=== PATIENT | female | born 1935 | race Caucasian/White ===

== ENCOUNTER 2016-04-28 11:34 | Emergency (ER) | payer OTHER ==
[2016-04-28 13:53] LABS: MANUAL DIFF NEEDED? NO
[2016-04-28 13:59] LABS: BASO% 0.4 % (0.0-0.8); EOS# 0.16 X1000 (0.0-0.7); EOS% 1.4 % (0.0-10.0); HEMATOCRIT 38.6 % (37.0-47.0); HEMOGLOBIN 12.3 g/dL (12.0-16.0); IMM GRAN# 0.04 X1000 (0.0-0.04); IMM GRAN% 0.4 % (0.0-0.5); LYMPH# 1.44 X1000 (1.2-3.4); LYMPH% 12.6 % (20.5-51.1); MCH 28.6 PG (27-31); MCHC 31.9 g/dL (33-37); MCV 89.8 FL (81-99); MONO# 0.78 X1000 (0.11-0.59); MONO% 6.8 % (1.7-9.3); MPV 10.3 FL (7.4-10.4); NEUT% 78.4 % (42.2-75.2); PLT 223 X1000 (130-400)
[2016-04-28 14:26] LABS: ALBUMIN 2.9 g/dL (3.5-5.0); CALCIUM 8.4 mg/dL (8.8-10.2); POTASSIUM 4.1 mmol/L (3.5-5.1); TOTAL BILIRUBIN 0.83 mg/dL (0.20-1.00); TOTAL PROTEIN 6.4 g/dL (6.3-8.3)
[2016-04-28] MEDS ORDERED: NS 1,000 ML IV ONE ×2 (16:06→17:46)
--- NOTE | 2016-04-28 16:10 | ED EKG INTERP ---
EKG Interpretation - EKG Time of EKG reading by physician:: 15:47 EKG Read and Signed by:: Addi Luong EKG Interpretation (*Must complete 3 of following elements*): Abnormal Rate: 69 Rhythm: nsr [place]: normal QRS: LBB Attestation - Scribe Verification/Attestation Scribe:: Austin Hubbard Acting as Scribe for:: Addi Luong Scribe documention review:: This chart was documented by a scribe and accurately reflects the service the provider performed and the decisions made by the provider.
--- NOTE | 2016-04-28 16:58 | PROVIDER DOCUMENTATION ---
HPI-General Adult - General Chief Complaint: Abdominal Pain Stated Complaint: BACK,SIDE PAIN Time Seen by Provider: 04/28/16 16:20 Source: patient Allergies/Adverse Reactions: Patient Allergies Allergy/AdvReac Type Severity Reaction Status Date / Time bacitracin Allergy RASH Verified 03/25/16 07:38 [From Neosporin ([id number])] bacitracin zinc * Allergy RASH Verified 03/25/16 07:38 [From Neosporin ([id number])] neomycin sulfate * Allergy RASH Verified 03/25/16 07:38 [From Neosporin ([id number])] polymyxin B Allergy RASH Verified 03/25/16 07:38 [From Neosporin ([id number])] Home Medications: Amiodarone HCl [Pacerone] 200 mg PO QAM 07/02/12 Calcium Carbonate/Vitamin D3 [Oscal 500 + D] 1 each PO QHS 07/02/12 Furosemide 40 mg PO QAM 07/02/12 Levothyroxine [Synthroid] 125 microgm PO QAM 07/02/12 Potassium Chloride [Klor-Con M20] 20 meq PO QAM 06/03/14 Cholecalciferol (Vit D3) [Vitamin D3] 1,000 unit PO DAILY 10/06/15 - History of Present Illness -Gen Adult Nature of Presenting Problems: Pt. is 80 yof that presents with c/o left side flank pain that began last night while laying in bed. Pt. denies any injury and reports the pain is worse when laying flat. Pt. reports a popping feeling in her left flank. Pt. denies any SOB or N/V associated with the pain. Pt. denies any other symptoms at this time. Location of Pain/Injury: reports: other (Left lateral ribs). denies: head, face , mouth, neck, chest, upper extremity, hand(s), abdomen, back, pelvis, genitalia , lower extremity, feet, upper body, lower body, generalized Pain Radiation: reports: no radiation Quality of Pain: reports: sharp. denies: aching, burning, cramping, dull, fullness, indigestion, pressure, stabbing, tearing, throbbing, tightness Severity: reports: mild. denies: moderate, severe Onset/Duration: reports: abrupt, last night Timing: reports: still present, constant. denies: improving, gone now, resolved prior to arrival, intermittent, changing over time, getting worse Context/Activities at Onset: reports: none. denies: recent emotional stress, recent physical stress, recent trauma history, possible bad food, cold exposure , out of country travel Modifying Factors: improves with: immobilization. worse with: lying down, movement Associated Symptoms: reports: pain with inspiration, other (Left lateral rib pain). denies: anxiety, arm pain, back/neck pain, chest pain, constipation, cough, diaphoresis, diarrhea, dizziness, EENT symptoms, fatigue, fever/chills, genitourinary problems, headaches, heartburn, joint pain, loss of appetite, malaise, muscle aches, sinus congestion/drainage, nausea, rash, seizure, shortness of breath, sensory/motor loss, swelling/mass in abdomen, syncope, vomiting, weakness, trouble walking Similar Symptoms Previously?: Yes Recently seen or treated by another doctor?: No Review of Systems - Adult - REVIEW OF SYSTEMS - ADULT Constitutional: reports: see HPI. denies: chills, fever, fatique Eyes: reports: see HPI. denies: discharge, blurred vision, double vision, eye pain Ears, Nose, Mouth & Throat: reports: see HPI. denies: ear pain, hearing loss, nose pain, loose teeth, mouth swelling, throat swelling Cardiovascular: reports: see HPI. denies: chest pain, palpitations, syncope Respiratory: reports: see HPI, pleurisy. denies: cough, dyspnea on exertion, shortness of breath, wheezing Gastrointestinal: reports: see HPI. denies: abdominal pain, hematemesis, diarrhea, nausea, vomiting Genitourinary: reports: see HPI. denies: dysuria, discharge, hematuria, hesitency, urgency Musculoskeletal: reports: see HPI. denies: bone pain, back pain, joint pain, joint swelling, neck pain Integumentary: reports: see HPI. denies: hair loss, itching, rash, skin thickening Neurological: reports: see HPI, ataxia. denies: dizziness/vertigo, headache/ migraines, numbness, seizure, tremors Psychiatric: reports: see HPI. denies: anxiety, depression, emotional problems , insomnia, panic attacks, suicidal thoughts Past History - Adult - PAST MEDICAL HISTORY-ADULT Review of Records: reports: Old Records Reviewed, Nursing Assessment Review, Medications Reviewed, Social history reviewed & non-contributory. Cardiovascular: reports: A-Fib, HTN, hyperlipidemia Gastrointestinal: reports: colitis Endocrine/Immune: reports: thyroid disorder - PRIOR SURGERIES/PROCEDURES Surgical/Procedure History: reports: cholecystectomy, hysterectomy, - IMMUNIZATION STATUS Childhood Immunizations: See Nurse Assessment Flu Vaccine: See Nurse Assessment - FAMILY HISTORY Family History: diabetes Physical Exam-General - PHYSICAL EXAM-ADULT Initial Vital Signs Reviewed: Yes - CONSTITUTIONAL General Appearance: alert, mild distress, obese. negative: thin, anxious, lethargic, slow to respond, obtunded, combative - EYES Eyes: PERRL/EOMI, pink conjunctivae. negative: conjuctival exudate, pale conjunctivae, scleral icterus, subconjunctival hemorrhage - HEAD, EARS, NOSE, MOUTH & THROAT HENMT: normocephalic/atraumatic, moist mucous membranes. negative: angioedema, frontal tenderness, maxillary tenderness - NECK Neck: non-tender, full range of motion, supple, normal inspection. negative: lymphadenopathy, trachial deviation, thyromegaly - RESPIRATORY Respiratory: lungs clear, normal breath sounds. negative: crackles, rales, rhonchi, stridor, wheezing - CARDIOVASCULAR Cardiovascular: normal peripheral pulses, regular rate, rhythm, no edema, no JVD , no murmur, irregularly irregular. negative: tachycardia, extra beats, friction rub - CHEST (BREASTS) Chest/Breast: deferred - GASTROINTESTINAL (ABDOMEN) Abdominal Exam: normal bowel sounds, non tender, soft. negative: distended, guarding, rigid, rebound, tenderness, hernia, mass - GENITOURINARY Female Genitalia/Pelvic Exam: deferred Rectal Exam: deferred Hemoccult Exam: deferred - LYMPHATIC Lymphatic: no adenopathy. negative: axilla node tender, cervical node tenderness - MUSCULOSKELETAL Back Exam: normal inspection, no CVA tenderness, no vertebral tenderness. negative: ecchymosis, muscle spasm, vertebral tenderness Extremity: normal range of motion, non-tender, normal inspection. negative: deformity, erythema, inflammation, swelling, tenderness Peripheral Pulses: radial (R): 2+, radial (L): 2+ - SKIN Integumentary: normal color, normal turgor, warm/dry. negative: cyanosis, diaphoresis, ecchymosis, erythema, jaundice, mottled, pallor, petechiae, purpura , rash, swelling, tenderness - NEUROLOGIC Neurologic: grossly normal, no motor/sensory deficits. negative: aphasia, facial droop, focal weakness, motor weakness, sensory deficit - PSYCHIATRIC Psych/Mental Status: normal mood/affect, normal thought content, normal thought process, oriented x 3. negative: anxious, paranoid, tearful Progress - PLAN OF CARE/RESULTS Progress/Plan/Lab Results: Discussed results and plan of care with patient. Patient agrees with plan and verbalizes understanding. Vital Signs Temp Pulse Resp BP Pulse Ox 04/28/16 15:49 98.2 F 69 16 99/68 98 04/28/16 12:54 97.5 F L 63 20 97/66 99 bacitracin [From Neosporin ([id number])] Allergy (Verified 03/25/16 07:38) RASH bacitracin zinc * [From Neosporin ([id number]-cet-[id number])] Allergy (Verified 03/25/16 07 :38) RASH neomycin sulfate * [From Neosporin ([id number]-[id number])] Allergy (Verified 03/25/16 07:38) RASH polymyxin B [From Neosporin ([id number]-[id number])] Allergy (Verified 03/25/16 07:38) RASH Amiodarone HCl [Pacerone] 200 mg PO QAM 07/02/12 Calcium Carbonate/Vitamin D3 [Oscal 500 + D] 1 each PO QHS 07/02/12 Furosemide 40 mg PO QAM 07/02/12 Levothyroxine [Synthroid] 125 microgm PO QAM 07/02/12 Potassium Chloride [Klor-Con M20] 20 meq PO QAM 06/03/14 Cholecalciferol (Vit D3) [Vitamin D3] 1,000 unit PO DAILY 10/06/15 Apixaban [Eliquis] 5 mg PO BID #60 tablet 11/27/15 Hydrocodone/Acetaminophen [[place] 5-325 Tablet] 1 each PO Q6HR PRN #20 tablet 06/04 Baclofen 10 mg PO TID #20 tablet 03/23/16 Fluconazole [Diflucan] 150 mg PO DAILY #7 tablet 03/23/16 Hydrocodone/APAP 5 mg/325 mg [[place]-5] 1 each PO Q8H PRN PRN #10 tablet Levofloxacin [Levaquin] 500 mg PO DAILY #10 tablet 03/25/16 Promethazine [Phenergan] 25 mg PO Q6H PRN PRN #10 tablet 03/25/16 Dietary Diet NPO Start WedApr 28 1306 Laboratory 04/28/16 04/28/16 04/28/16 Unknown 13:19 13:19 WBC 11.39 H RBC 4.30 Hgb 12.3 Hct 38.6 MCV 89.8 MCH 28.6 MCHC 31.9 L RDW Std Deviation 15.2 H Plt Count 223 MPV 10.3 Immature Gran % (Auto) 0.4 Neut % (Auto) 78.4 H Lymph % (Auto) 12.6 L [place] % (Auto) 6.8 Eos % (Auto) 1.4 Baso % (Auto) 0.4 Immature Gran # (Auto) 0.04 Neut # (Auto) 8.92 H Lymph # (Auto) 1.44 [place] # (Auto) 0.78 H Eos # (Auto) 0.16 Baso # (Auto) 0.05 Sodium Potassium Chloride Carbon Dioxide Anion Gap BUN Creatinine Estimated GFR/1.73 m2 BUN/Creatinine Ratio Glucose Calculated Osmolality Calcium Total Bilirubin AST ALT Alkaline Phosphatase Troponin T < 0.010 Total Protein Albumin Globulin Albumin/Globulin Ratio Amylase Lipase Urine Source CATH Urine Color YELLOW Urine Turbidity CLEAR Urine pH 6.5 Ur Specific [place] 1.015 Urine Protein NEGATIVE Ur Glucose (Stick) NEGATIVE Ur Ketones (Stick) NEGATIVE Urine Blood NEGATIVE Urine Nitrite POSITIVE A Urine Bilirubin NEGATIVE Urobilinogen Dipstick 2 A Urine Leukocytes MODERATE A Urine WBC (Auto) 10-20 A Urine RBC (Auto) <10 U Epithel Cells (Auto) <10 Urine Bacteria (Auto) 3+ 04/28/16 13:19 WBC RBC Hgb Hct MCV MCH MCHC RDW Std Deviation Plt Count MPV Immature Gran % (Auto) Neut % (Auto) Lymph % (Auto) [place] % (Auto) Eos % (Auto) Baso % (Auto) Immature Gran # (Auto) Neut # (Auto) Lymph # (Auto) [place] # (Auto) Eos # (Auto) Baso # (Auto) Sodium 127 L Potassium 4.1 Chloride 90 L Carbon Dioxide 28 Anion Gap 9 BUN 14 Creatinine 1.2 H Estimated GFR/1.73 m2 43 BUN/Creatinine Ratio 12 Glucose 116 H Calculated Osmolality 257 Calcium 8.4 L Total Bilirubin 0.83 AST 43 H ALT 17 Alkaline Phosphatase 107 H Troponin T Total Protein 6.4 Albumin 2.9 L Globulin 3.5 Albumin/Globulin Ratio 0.8 Amylase 54 Lipase 58 Urine Source Urine Color Urine Turbidity Urine pH Ur Specific [place] Urine Protein Ur Glucose (Stick) Ur Ketones (Stick) Urine Blood Urine Nitrite Urine Bilirubin Urobilinogen Dipstick Urine Leukocytes Urine WBC (Auto) Urine RBC (Auto) U Epithel Cells (Auto) Urine Bacteria (Auto) Orders Category Date Time Status Saline Loc DIRECTED Care 04/28/16 13:06 Active NPO Diet 04/28/16 13:06 Active FLAT/UPRIGHT ABD/1 VIEW CHEST [RAD] Stat Exams 04/28/16 16:03 Draft AMYLASE [CHEM] Stat Lab 04/28/16 13:19 Completed CBC WITH ELECTRONIC DIFF [HEME] Stat Lab 04/28/16 13:19 Completed COMPREHENSIVE METABOLIC PANEL [CHEM] Stat Lab 04/28/16 13:19 Completed LIPASE [CHEM] Stat Lab 04/28/16 13:19 Completed TROPONIN T Stat Lab 04/28/16 13:19 Completed URINALYSIS W/POSS RFLX CULT [URINALYSIS] Stat Lab 04/28/16 Completed URINE CULTURE [RM] Routine Lab 04/28/16 18:20 Received 0.9% Sodium Chloride Inj [Ns] 1,000 ml Med 04/28/16 16:06 Discontinued IV 999 mls/hr 0.9% Sodium Chloride Inj [Ns] 1,000 ml Med 04/28/16 17:46 Active IV 999 mls/hr CefTRIAXONE 1 GM/NS [Rocephin 1 gm/Ns] 50 ml Med 04/28/16 18:41 Active IV NOW EKG [EKG] Stat Ther 04/28/16 16:02 Ordered Laboratory Tests 04/28/16 04/28/16 04/28/16 13:19 13:19 13:19 WBC 11.39 H RBC 4.30 Hgb 12.3 Hct 38.6 MCV 89.8 MCH 28.6 MCHC 31.9 L RDW Std Deviation 15.2 H Plt Count 223 MPV 10.3 Immature Gran % (Auto) 0.4 Neut % (Auto) 78.4 H Lymph % (Auto) 12.6 L [place] % (Auto) 6.8 Eos % (Auto) 1.4 Baso % (Auto) 0.4 Immature Gran # (Auto) 0.04 Neut # (Auto) 8.92 H Lymph # (Auto) 1.44 [place] # (Auto) 0.78 H Eos # (Auto) 0.16 Baso # (Auto) 0.05 Sodium 127 L Potassium 4.1 Chloride 90 L Carbon Dioxide 28 Anion Gap 9 BUN 14 Creatinine 1.2 H Estimated GFR/1.73 m2 43 BUN/Creatinine Ratio 12 Glucose 116 H Calculated Osmolality 257 Calcium 8.4 L Total Bilirubin 0.83 AST 43 H ALT 17 Alkaline Phosphatase 107 H Troponin T < 0.010 Total Protein 6.4 Albumin 2.9 L Globulin 3.5 Albumin/Globulin Ratio 0.8 Amylase 54 Lipase 58 Urine Source Urine Color Urine Turbidity Urine pH Ur Specific [place] Urine Protein Ur Glucose (Stick) Ur Ketones (Stick) Urine Blood Urine Nitrite Urine Bilirubin Urobilinogen Dipstick Urine Leukocytes Urine WBC (Auto) Urine RBC (Auto) U Epithel Cells (Auto) Urine Bacteria (Auto) 04/28/16 Unknown WBC RBC Hgb Hct MCV MCH MCHC RDW Std Deviation Plt Count MPV Immature Gran % (Auto) Neut % (Auto) Lymph % (Auto) [place] % (Auto) Eos % (Auto) Baso % (Auto) Immature Gran # (Auto) Neut # (Auto) Lymph # (Auto) [place] # (Auto) Eos # (Auto) Baso # (Auto) Sodium Potassium Chloride Carbon Dioxide Anion Gap BUN Creatinine Estimated GFR/1.73 m2 BUN/Creatinine Ratio Glucose Calculated Osmolality Calcium Total Bilirubin AST ALT Alkaline Phosphatase Troponin T Total Protein Albumin Globulin Albumin/Globulin Ratio Amylase Lipase Urine Source CATH Urine Color YELLOW Urine Turbidity CLEAR Urine pH 6.5 Ur Specific [place] 1.015 Urine Protein NEGATIVE Ur Glucose (Stick) NEGATIVE Ur Ketones (Stick) NEGATIVE Urine Blood NEGATIVE Urine Nitrite POSITIVE A Urine Bilirubin NEGATIVE Urobilinogen Dipstick 2 A Urine Leukocytes MODERATE A Urine WBC (Auto) 10-20 A Urine RBC (Auto) <10 U Epithel Cells (Auto) <10 Urine Bacteria (Auto) 3+ - XRAY 1 XRAY Study: 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[place])), Abdomen (Constipation ( [place])) XRAY Interpretation: see note Departure - Departure Time of Disposition Order: 18:43 DIAGNOSIS: Costochondritis, acute, Hyponatremia UTI (urinary tract infection) Qualifiers: Urinary tract infection type: acute cystitis Hematuria presence: without hematuria Qualified Code(s): N30.00 - Acute cystitis without hematuria Constipation Qualifiers: Constipation type: unspecified constipation type Qualified Code(s): K59.00 - Constipation, unspecified Disposition: HOME 01 Certified Medical Emergency: Emergent Condition: Stable Additional Instructions: Follow up with primary care physician Add salt to your diet Take medications as directed Return to ED for any concerns or worsening of symptoms ED Follow Up Instructions: You have been treated by a care provider in the Emergency Department. These instructions are being provided to you so you can have an understanding of how to care for yourself upon discharge. Upon discharge from the Emergency Department, you are responsible for making arrangements for follow-up care by a physician of your choice. Take all prescribed medications as directed. Return to the Emergency Department immediately for any new or worsening symptoms. You may call the Physician Referral phone number at [phone] to obtain a list of Physicians who are taking new patients. Prescriptions: Sulfamethoxazole/Trimethoprim [Bactrim Ds Tablet] 1 each PO BID #10 tablet Ibuprofen [Motrin] 800 mg PO Q8H PRN PRN #20 tablet PRN Reason: inflammation Omeprazole 20 mg PO DAILY #20 tablet.dr Referrals: Modesto Fermin MD [Primary Care Provider] - Instructions: Costochondritis, Elpm-dy-Oniv, Hyponatremia, [id number]-[id number], Urinary Tract Infection, [id number] Attestation - Physician/ Mid-level Attestation Patient care was provided by Mid-level provider (PROGRAMMING INTERN/PA):: Yes Mid-level provider:: [place] Mid-level documentation review:: The Mid-level provider documentation, treatment plan and medical decision making was reviewed by the physician who agrees with all treatment and medical decision making by the MLP.
[2016-04-28 17:50] LABS: BILIRUBIN URINE NEGATIVE (NEGATIVE); BLOOD URINE NEGATIVE (NEGATIVE); COLOR YELLOW; GLUCOSE URINE NEGATIVE (NEGATIVE); LEUKOCYTES URINE MODERATE (NEGATIVE); NITRITE URINE POSITIVE (NEGATIVE); PH URINE 6.5; PROTEIN URINE NEGATIVE (NEGATIVE); SP GRAVITY URINE 1.015; TURBIDITY URINE CLEAR (CLEAR); URINE MICRO REVIEW NEEDED? NO; URINE SOURCE CATH; UROBILINOGEN URINE 2 mg/dL (NORMAL)
--- NOTE | 2016-04-28 17:50 | Diag Imaging Result Document ---
PROCEDURE NAME: FLAT/UPRIGHT ABD/1 VIEW CHEST - 04/28/2016 FLAT AND UPRIGHT ABDOMEN: FINDINGS: There is gas and stool throughout the colon. There is no evidence of gastric or small- bowel dilatation. No evidence of organomegaly or mass is present. IMPRESSION: Constipation. AP CHEST: FINDINGS: There is scoliosis of the thoracic spine with convexity to the right. There is fibrosis in the right middle lobe and/or lower lobe. This was similar in appearance on 03/25/2016. IMPRESSION: Right basilar fibrosis. Essentially stable chest.
[2016-04-28 17:52] LABS: UR EPITHELIAL CELLS <10 /HPF (<10); URINE BACTERIA 3+ /HPF; URINE CULTURE NEEDED? YES; URINE RBC <10 /HPF (<10)
[2016-04-28] MEDS ORDERED: ROCEPHIN 1 GM/NS 50 ML IV ONE (18:41)
[2016-04-28 19:52] VITALS: BP 90/74
--- NOTE | 2016-04-29 06:24 | EKG Report ---
Test Performed on : 04/28/2016 3:47:19 PM Test Reason : CP Blood Pressure : / mmHG Vent. Rate : 069 BPM Atrial Rate : 069 BPM P-R Int : 170 ms QRS Dur : 154 ms QT Int : 510 ms P-R-T Axes : 070 006 173 degrees QTc Int : 546 ms Normal sinus rhythm. Left bundle branch block Abnormal ECG When compared with ECG of 25-MAR-2016 09:11, Sinus rhythm. has replaced Wide QRS rhythm. Unconfirmed Result
== END 2016-04-28 19:52 | disposition home or self-care (01) ==
LOC: ED 11:34
DX: M94.0 Chondrocostal junction syndrome [Tietze] (principal); E87.1 Hypo-osmolality and hyponatremia; N30.00 Acute cystitis without hematuria; K59.00 Constipation, unspecified; M79.673 Pain in unspecified foot; R07.81 Pleurodynia; I48.91 Unspecified atrial fibrillation; I10 Essential (primary) hypertension; Z79.899 Other long term (current) drug therapy; E78.5 Hyperlipidemia, unspecified; E07.9 Disorder of thyroid, unspecified; E66.9 Obesity, unspecified; Z68.24 Body mass index [BMI] 24.0-24.9, adult; Z79.01 Long term (current) use of anticoagulants
CPT/HCPCS: 36415; 74022; 80053; 81001; 82150; 83690; 84484; 85025; 87077; 87088; 87186; 93005; 96365; J0696; J7030

== ENCOUNTER 2016-08-06 00:12 | Inpatient (IN) ==
[2016-08-06] MEDS ORDERED: ASPIRIN PO STA (01:12)
[2016-08-06] MEDS ORDERED: NS 500 ML IV ONE (01:15)
[2016-08-06 02:26] LABS: BASO% 0.2 % (0.0-0.8); EOS# 0.07 X1000 (0.0-0.7); EOS% 0.6 % (0.0-10.0); HEMATOCRIT 31.2 % (37.0-47.0); HEMOGLOBIN 10.6 g/dL (12.0-16.0); IMM GRAN# 0.03 X1000 (0.0-0.04); IMM GRAN% 0.3 % (0.0-0.5); LYMPH# 0.73 X1000 (1.2-3.4); LYMPH% 6.6 % (20.5-51.1); MCV 91.2 FL (81-99); MONO% 6.3 % (1.7-9.3); MPV 11.4 FL (7.4-10.4); PLT 130 X1000 (130-400); RBC 3.42 XMIL (4.2-5.4)
[2016-08-06 02:34] LABS: ALBUMIN 2.1 g/dL (3.5-5.0); CALCIUM 7.3 mg/dL (8.8-10.2); MAGNESIUM 2.2 mg/dL (1.5-2.7); POTASSIUM 4.8 mmol/L (3.5-5.1); TOTAL BILIRUBIN 1.76 mg/dL (0.20-1.00); TOTAL PROTEIN 4.6 g/dL (6.3-8.3)
[2016-08-06] MEDS ORDERED: SODIUM CHLORIDE IV ONE (03:01)
[2016-08-06] MEDS ORDERED: ZOSYN 3.375 GM/NS 3.375 GM/50 ML IVPB IV ONE (03:01)
[2016-08-06] MEDS ORDERED: NS 1,000 ML IV ONE (03:01)
--- NOTE | 2016-08-06 03:09 | PROVIDER DOCUMENTATION ---
This chart was entered by Gudelia Marie Scribe, acting as scribe for Charlie Escamilla MD. HPI-General Adult - General Chief Complaint: General Adult Stated Complaint: ABD PAIN Time Seen by Provider: 08/06/16 00:30 Source: EMS Allergies/Adverse Reactions: Patient Allergies Allergy/AdvReac Type Severity Reaction Status Date / Time bacitracin Allergy RASH Verified 08/06/16 00:54 [From Neosporin ([id number])] bacitracin zinc * Allergy RASH Verified 08/06/16 00:54 [From Neosporin ([id number])] neomycin sulfate * Allergy RASH Verified 08/06/16 00:54 [From Neosporin ([id number])] polymyxin B Allergy RASH Verified 08/06/16 00:54 [From Neosporin ([id number])] Home Medications: Home Medication List Medication Instructions Recorded Confirmed Last Taken Type Amiodarone HCl [Pacerone] 200 mg PO QAM 07/02/12 08/06/16 08/05/16 History Levothyroxine [Synthroid] 125 microgm PO QAM 07/02/12 08/06/16 08/05/16 History Carvedilol 25 mg PO BID 05/04/16 08/06/16 08/05/16 History Hydrocodone/Acetaminophen [[place] 1 - 2 each PO Q6H PRN PRN #40 05/06/1608/05/16 Rx 5-325 Tablet] tablet Ondansetron HCl [Zofran] 1 tab PO DAILY 08/06/16 08/06/16 08/05/16 History - History of Present Illness -Gen Adult Nature of Presenting Problems: PT IS A 81YOF PRESENTING TO THE ED PER EMS. EMS STATES THEY ARE VERY FAMILIAR WITH PT AND AREN'T SURE OF NATURE OF ILLNESS AT THIS TIME. EMS DID NOTE PT WAS WARM TO THE TOUCH AND MORE LETHARGIC THAN NORMAL BUT THEY ALSO STATED THAT HER LIVING CONDITIONS WERE "ABSOLUTELY DISGUSTING AND NOT SUITABLE FOR ANYONE TO LIVE IN" PT PHYSICAL APPEARANCE IS VERY POOR AND NO ABILITY TO CARE FOR HERSELF AND HYGIENE. PT STATES NO PAIN BUT STILL UNSURE OF REASON TO BE IN ED. Location of Pain/Injury: reports: none Pain Radiation: reports: no radiation Quality of Pain: reports: none Severity: reports: severe Onset/Duration: reports: just prior to arrival Timing: reports: still present Context/Activities at Onset: reports: light activity Modifying Factors: improves with: nothing Associated Symptoms: reports: denies symptoms Similar Symptoms Previously?: No Recently seen or treated by another doctor?: No Review of Systems - Adult - REVIEW OF SYSTEMS - ADULT Constitutional: reports: no symptoms reported Eyes: reports: no symptoms reported Ears, Nose, Mouth & Throat: reports: no symptoms reported Cardiovascular: reports: no symptoms reported Respiratory: reports: no symptoms reported Gastrointestinal: reports: no symptoms reported Genitourinary: reports: no symptoms reported Musculoskeletal: reports: no symptoms reported Integumentary: reports: no symptoms reported Neurological: reports: no symptoms reported Psychiatric: reports: no symptoms reported Endocrine: reports: no symptoms reported Hematologic/Lymphatic: reports: no symptoms reported Allergic/Immunologic: reports: no symptoms reported All Other Systems: Reviewed and Negative Past History - Adult - PAST MEDICAL HISTORY-ADULT Review of Records: reports: Old Records Reviewed, Nursing Assessment Review, Medications Reviewed, Social history reviewed & non-contributory. Major Childhood Illnesses: reports: denies history Cardiovascular: reports: A-Fib, HTN, hyperlipidemia Respiratory: reports: denies history Gastrointestinal: reports: colitis Obstetrical/Gynecological: reports: denies history Genitourinary: reports: denies history Musculoskeletal: reports: denies history Neurological: reports: denies history Endocrine/Immune: reports: thyroid disorder Other Conditions: reports: denies history - PRIOR SURGERIES/PROCEDURES Surgical/Procedure History: reports: cholecystectomy, hysterectomy, - IMMUNIZATION STATUS Childhood Immunizations: See Nurse Assessment Flu Vaccine: See Nurse Assessment - FAMILY HISTORY Family History: diabetes - SOCIAL HISTORY Smoking: denies, non-smoker Substance Use: none/never, denies Alcohol Use Frequency: never Living Situation: family Physical Exam-General - PHYSICAL EXAM-ADULT Initial Vital Signs Reviewed: Yes - CONSTITUTIONAL General Appearance: mild distress, cachetic, thin, other (POOR HYGIENE AND LACK OF PROPER CARE FOR HYGIENE PHYSICAL WELL BEING) - EYES Eyes: PERRL/EOMI, pink conjunctivae, fundi clear, no AV nicking - HEAD, EARS, NOSE, MOUTH & THROAT HENMT: normocephalic/atraumatic, moist mucous membranes, normal ENT inspection, TMs normal, pharynx normal - NECK Neck: non-tender, full range of motion, supple, normal inspection - RESPIRATORY Respiratory: chest non-tender, lungs clear, normal breath sounds, no pleuratic chest pain, no respiratory distress, no accessory muscle use - CARDIOVASCULAR Cardiovascular: normal peripheral pulses, regular rate, rhythm, no edema, no gallop, no JVD, no murmur - GASTROINTESTINAL (ABDOMEN) Abdominal Exam: normal bowel sounds, non tender, soft, no organomegaly, no pulsatile mass - LYMPHATIC Lymphatic: no adenopathy - MUSCULOSKELETAL Back Exam: normal inspection, no CVA tenderness, no vertebral tenderness Extremity: no pedal edema, no calf tenderness, normal capillary refill, pelvis stable, other (HX RIGHT ARM FX NOT REPAIRED [id number] PRIOR, PT HAS HEMATOMA FROM WRIST TO SHOULDER). negative: normal range of motion, non-tender, normal gait, normal inspection - SKIN Integumentary: warm/dry, ecchymosis, pallor, warm - NEUROLOGIC Neurologic: abnormal cerebellar tests, abnormal hosiery mater II-XII, abnormal gait, motor weakness - PSYCHIATRIC Psych/Mental Status: oriented x 3, disheveled, depressed affect. negative: normal mood/affect, normal thought content, normal thought process Progress - PLAN OF CARE/RESULTS Progress/Plan/Lab Results: Vital Signs - 8 hr 08/06/16 00:30 Temperature 98.2 F Pulse Rate 89 Respiratory Rate 18 Blood Pressure 80/42 O2 Sat by Pulse Oximetry 96 0120 MS. DENNYS' CASE WAS DISCUSSED BETWEEN MYSELF, DR. ESCAMILLA, AND MARTIR OLIVEIRA REGARDING PTS POOR STATE OF HYGIENE, THE APPEARANCE OF LACK OF PROPER CARE AT HOME AND THE REPORT GIVEN PER EMS REGARDING HER LIVING CONDITIONS. THE DECISION WAS MADE WE NEEDED TO CONTACT [facility] FOR POSSIBLE ELDER NEGLECT. EMS STATED THAT THE HOME WAS NOT SUITABLE TO LIVE IN AND THAT THE POOR CONDITION OF HOME WAS OBVIOUS FOR NEGLECT OF PROPER CLEANING AND UP KEEP OF A DWELLING THAT SOMEONE SHOULD LIVE IN. 0125 PATRICIA TORRES WITH [facility] WAS CONTACTED AND NOTIFIED OF PTS CONDITION AND SHE STATED SHE WOULD CONTACT HER AGRICULTURAL ADVISER AND CALL BACK. 0148 PATRICIA STATED THAT HER AGRICULTURAL ADVISER STATED THAT IF PT WAS BEING ADMITTED THEN THEY WOULD SEND SOMEONE AFTER 0800. I ASKED HER TO PLEASE CALL AGRICULTURAL ADVISER BACK AND STRESS IMPORTANCE OF EVALUATION THIS AM. 0152 PATRICIA TORRES CALLED BACK AND STATED SINCE PT WAS ADMITTED THEY WOULD SEND A WORKER IN THE AM. I CLARIFIED WITH PATRICIA THAT AT THIS TIME WE DID NOT HAVE A DISPOSITION TO ADMISSION OR NOT AND EVEN IF SHE IS ADMITTED SHE WILL BE IN ED FOR AN EXTENDED AMOUNT OF TIME DUE TO NO ADMISSION BEDS AVAILABLE UPSTAIRS. I REQUESTED PATRICIA TO CALL HER AGRICULTURAL ADVISER RUSSEL LOZADA AND STRESS THE IMPORTANCE OF THE SITUATION. THAT PTS HAIR IS MATTED TO HER HEAD, IT APPEARS THAT SHE HAS FECES UNDER HER NAILS, HER LEFT ARM HAD BEEN FX APPROXIMATELY 6 MONTHS PRIOR AND NO TREATMENT PROCEDURES DONE ON THE ARM, THAT HER LEFT ARM FROM WRIST TO THE SHOULDER IS ONE LARGE HEMATOMA, PTS CLOTHING AND PHYSICAL HYGIENE APPEARS THAT SHE HAS NOT BEEN BATHED OR CLEANED PROPERLY IN MANY DAYS. I ALSO EXPLAINED TO HER THAT THE SON IS AT BEDSIDE ATTEMPTING TO CLEAN UNDER HER NAILS WITH OUR SANI-WIPES AND THAT HIS PERSONAL HYGIENE IS LACKING WELL. 210 PATRICIA CALLED BACK AND STATED SHE WAS ENROUTE TO EVALUATE PT PER AGRICULTURAL ADVISER RUSSEL LOZADA. 251 PATRICIA WITH [facility] ARRIVED TO EVALUATE PT CONDITION AND SPEAK WITH DR. ESCAMILLA Result Diagrams: 08/06/16 00:20 08/06/16 00:20 - XRAY 1 XRAY: Bilateral XRAY Study: Chest (RIGHT UPPER/LOWER PNEUMONIA, BILATERAL PLEURAL EFFUSIONS, CARDIOMEGALLY) Departure - Departure Time of Disposition Decision: 03:09 DIAGNOSIS: Sepsis associated hypotension, Malnutrition Disposition: ADMITTED INPATIENT 09 Certified Medical Emergency: Emergent Condition: Stable Referrals and Follow-Ups: Modesto Fermin MD [Primary Care Provider] - Attestation - Physician/ MODESTA Attestation Patient care was provided by Advanced Practice Provider:: Yes Advanced Practice Provider documentation review:: The Mid-level provider documentation, treatment plan and medical decision making was reviewed by the physician who agrees with all treatment and medical decision making by the MLP. The physician spent face to face time with patient:: Yes Advanced Practice Provider documentation review:: The physician spent face to face time with this patient and agrees with all MLP documentation, treatment, and medical decision making by the MLP. See provider notes for further information. This chart was documented by the indicated scribe, (Gudelia Marie Scribe) and accurately reflects the services I performed and decisions made by me, Charlie Escamilla MD, as attested by the provider's signature.
[2016-08-06] MEDS ORDERED: VANCOMYCIN IV PER PHARMACY MISC SCH ×2 (03:15→07:24)
[2016-08-06 03:37] LABS: MANUAL DIFF NEEDED? NO
[2016-08-06] MEDS: DOPAMINE 400 MG/D5W 400 MG/500 ML IV.SOLN IV SCH ×2 (03:54→06:17)
[2016-08-06 04:25] LABS: INR 2.29; PROTIME 25.4 Seconds (9.2-11.7); PTT 43.6 Seconds (22.0-36.0)
--- NOTE | 2016-08-06 04:46 | HISTORY AND PHYSICAL ---
PRIMARY CARE PHYSICIAN: Dr. Modesto Hodge. CHIEF COMPLAINT: Not feeling well. HISTORY OF PRESENT ILLNESS: This is an 81-year-old female who was brought to the emergency department because apparently she was not feeling well and she was more lethargic. Patient is a poor historian and son is at bedside. He reports that she was feeling not well today. He reports that she had one episode of blood in stool today. Also, that he noticed that this patient was having more cough. He has not seen any fever in this patient the previous day. As per EMS note, the conditions where the patient was found was absolutely disgusting and nonsterile for anybody to live in. Here in the ER, she was evaluated and she was found to have a bilateral pneumonia with septic shock associated with low blood pressure, tachycardic, but not febrile. At this point, we are going to admit this patient to the intensive care unit and will monitor her closely. PAST MEDICAL HISTORY: 1. Atrial fibrillation, on Eliquis. 2. Hypertension. 3. Hypothyroidism. 4. Hyperlipidemia. 5. GERD. 6. Old traumatic injury to the upper lip. 7. 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 Diverticulosis. PAST SURGICAL HISTORY: Cholecystectomy and section. SOCIAL HISTORY: She was a former smoker but quit 20 years ago. She denies using any illicit drugs or drinking alcohol. Lives at home with son. FAMILY HISTORY: Noncontributory. REVIEW OF SYMPTOMS: Not possible to obtain because the patient is not a good historian. ALLERGIES: Patient is allergic to Neosporin, neomycin, polymyxin, bacitracin, and also zinc. PHYSICAL EXAMINATION: VITAL SIGNS: Temperature 98.2 degrees, heart rate 89, respiratory rate 18, blood pressure 70/40, O2 saturation 96% on 5 L nasal cannula. GENERAL: This is an unkempt chronically ill-looking, frail, 81-year-old female lying in bed, in no acute distress. A little bit lethargic, although she answers questions appropriately. HEENT: Head is normocephalic, with old traumatic injury to the upper lip with gums which are purple in color and dry. Pupils equal, round, and reactive to light and accommodation and pale conjunctivae. NECK: Supple. No JVD noted. No carotid bruits. No lymphadenopathy. No thyromegaly. CARDIOVASCULAR: S1, S2 heard. No murmurs, gallops, or rubs. Regular rate and rhythm. RESPIRATORY: Clear bilaterally to auscultation. No work of breathing or using accessory muscles. ABDOMEN: Soft, nontender to palpation. Bowel sounds present. No organomegaly. EXTREMITIES: No clubbing, cyanosis, or edema. Peripheral pulses present in both legs. NEUROLOGICAL: Patient is a little bit sleepy but awake and responsive to verbal stimuli. Patient moves 4 extremities. LABORATORY DATA: White cell count 11.07, hemoglobin 10.6, hematocrit 31.2, platelets at 130,000. BMP shows creatinine 2.1. ASSESSMENT: 1. Bilateral pneumonia. 2. Septic shock secondary to diagnosis #1. 3. Acute kidney injury. 4. Atrial fibrillation, now in sinus rhythm and rate controlled. 5. Hypertension. 6. Hypothyroidism. 7. Hyperlipidemia. 8. Gastroesophageal reflux disease. 9. Possible gastrointestinal bleeding. PLAN: 1. The patient is being admitted to the hospital because of septic shock secondary to bilateral pneumonia. Patient is going to be started on broad-spectrum antibiotics. In this case, is vancomycin and Zosyn. Also, we are going to provide breathing treatments with DuoNeb every 4 hours as scheduled. We are going to also do IV steroids, in this case, Solu- Medrol. For this septic shock, she is going to receive IV fluids. She has received already 2 boluses of 1 L and 0.5 L so far and we are going to continue with 100 mL/h normal saline. 2. For GAY, we will continue with IV fluids. Labs from April this year showed normal creatinine. 3. For hypertension, of course, because of the septic shock, we are going to hold all home medications. 4. For hypothyroidism, we are going to check TSH. 5. For gastroesophageal reflux disease,will be provided Protonix. 6. Patient was found in very poor living conditions, so [facility] has been involved in the case as per indications of Dr. Romain Epstein. We will call social sciences research scientist also to help us with placement. 7. For possible GI bleed because son reported vomiting a little bit of blood will consult GI cc: Miko Sanchez MD [facility]
[2016-08-06] MEDS ORDERED: VANCOMYCIN 1,550 MG in NS 250 ML IV ONE (06:00)
--- NOTE | 2016-08-06 06:08 | EKG Report ---
Test Performed on : 08/06/2016 02:13:31 AM Test Reason : ABD PAIN Blood Pressure : / mmHG Vent. Rate : 090 BPM Atrial Rate : 090 BPM P-R Int : 000 ms QRS Dur : 162 ms QT Int : 458 ms P-R-T Axes : 000 -06 182 degrees QTc Int : 560 ms Undetermined rhythm Left bundle branch block Abnormal ECG When compared with ECG of 17-MAY-2016 01:16, Current undetermined rhythm precludes rhythm comparison, needs review Unconfirmed Result
[2016-08-06] MEDS ORDERED: NS 1,000 ML IV SCH ×2 (07:24→16:09)
[2016-08-06] MEDS ORDERED: ZOFRAN IV PRN (07:24)
[2016-08-06] MEDS ORDERED: DUONEB (A & A) INH PRN (07:24)
[2016-08-06] MEDS ORDERED: PROTONIX IV SCH (07:24)
[2016-08-06] MEDS: DUONEB (A & A) INH SCH ×5 (07:24→19:30)
[2016-08-06] MEDS ORDERED: MORPHINE IV PRN (07:24)
[2016-08-06] MEDS ORDERED: SODIUM CHLORIDE 0.9% INJ SCH (07:24)
[2016-08-06] MEDS ORDERED: SYNTHROID PO SCH (08:00)
[2016-08-06 08:05] LABS: HEMOGLOBIN A1C 5.1 % (4.8-6.0)
[2016-08-06 08:13] LABS: ALLEN TEST YES; BE -1.2 mmoll (-3.0-3.0); BLOOD TYPE ARTERIAL; DRAW SITE R RADIAL; O2(CT) 13.4 mL/dL (15.0-23.0); PCO2(98.6) 39 mmHg (35-45); PO2(98.6) 65 mmHg (60-100); SAMPLE BLOOD; SAO2 96.6 % (95.0-100.0); THB 10.2 g/dL (11.5-17.4); pH(98.6) 7.39 (7.35-7.45)
[2016-08-06 08:16] LABS: MODALITY CANNULA
[2016-08-06] MEDS ORDERED: CORDARONE PO SCH (09:00)
[2016-08-06] MEDS ORDERED: LEVOPHED 8 MG in D5 1/2 NS 250 ML IV SCH (09:15)
--- NOTE | 2016-08-06 10:08 | Diag Imaging Result Document ---
PROCEDURE NAME: CHEST-1 VIEW - 08/06/2016 PORTABLE CHEST X-RAY, 08/06/2016: COMPARISON: 05/17/2016. FINDINGS: Stable cardiomegaly. There is dramatic worsening in the pulmonary vascular congestion and interstitial pulmonary edema. There are small to moderate pleural effusions bilaterally. IMPRESSION: Cardiomegaly, pulmonary edema, pleural effusions.
[2016-08-06] MEDS: NEO-SYNEPHRINE 50 MG in NS 250 ML IV SCH ×9 (10:42→17:55)
[2016-08-06] MEDS ORDERED: ZOSYN 3.375 GM/NS 3.375 GM/50 ML IVPB IV SCH (12:00)
[2016-08-06] MEDS ORDERED: SOLU-CORTEF IV ONE (12:49)
[2016-08-06] MEDS ORDERED: STERILE WATER INJ. INJ PRN (13:09)
--- NOTE | 2016-08-06 14:25 | Diag Imaging Result Document ---
PROCEDURE NAME: THORAX/ABDOMEN/PELVIS W/O CONT - 08/06/2016 CT CHEST: A CT dose reduction protocol was used. COMPARISON: 05/04/2016. FINDINGS: There are moderate pleural effusions. There is essentially complete collapse of the right lower lobe, and significant collapse of the left lower lobe. There is worsening cardiomegaly. There is severe patient motion artifact. There is suspected to be pulmonary edema. There is a hiatal hernia. There is some new displacement and significant callus formation at numerous bilateral rib fractures that were present previously. No definitely new rib fractures. Stable extensive compression fractures in the thoracic spine. IMPRESSION: 1. Cardiomegaly. 2. Pleural effusions. 3. Pulmonary edema. 4. Bilateral lower lobe atelectasis, right greater than left. CT ABDOMEN AND PELVIS: A CT dose reduction protocol was used. COMPARISON: 05/04/2016. FINDINGS: There is moderate ascites. Stable small mass in the posterior right lobe of the liver. No new liver masses. Stable severely atrophic pancreas. No renal stones or urinary obstruction. There is diffuse wall thickening of the colon suggesting colitis. There are numerous sigmoid colon diverticula, which are not particularly inflamed. Oro catheter in the urinary bladder. Uterus and rectum are normal. There are chronic bilateral L5 pars defects. No acute fractures. There may be some wall thickening of proximal small bowel loops as well, most visible in the left upper quadrant. IMPRESSION: 1. Enterocolitis. 2. Moderate ascites. [facility]
--- NOTE | 2016-08-06 16:48 | PROGRESS NOTE ---
DATE: 08/06/2016 SUBJECTIVE: Today Ms. Hu referred to be doing a little better. There was a son in the room when I saw her. According to the son, the patient was brought in because they found that she did have a little trace of blood in her stool. OBJECTIVE: Vital signs: Blood pressure is 72/42, pulse is 95, respirations 25. General Appearance: Ms. Hu is a 51-year-old female. She was in bed. She did not seems to be in any overt distress. HEENT: Mucosa is pink, slightly dry. She has a silver-like tint to her complexion, which makes me suspicious for adrenal insufficiency/ hypothyroidism. Chest: Air entry is bilaterally reduced. A few bibasilar crepitations. Cardiovascular: Regular rate and rhythm. I did not appreciate any murmur. Abdomen: Soft. The patient does have some mild tenderness in the epigastrium. Bowel sounds are present. Extremities: No pedal edema. PANTOGRAPH TRANSFERRER: Patient is awake, is alert, knows where she is. Follows some basic commands. LABORATORY DATA: WBC is 11.07, hemoglobin is 10.6, platelet count of 130,000. Current imaging studies: A chest x-ray, which was done, shows cardiomegaly, pulmonary edema, and pleural effusions. The chemistry: Sodium is 138, potassium is 4.8, chloride is 100, bicarb is 27, creatinine is 2.1. It was actually normal in April of this year but the patient has been having recurrent acute kidney injury. ASSESSMENT: 1. Persistent hypotension. The patient; however, continues to have a very clear mentation. I think it could be probably driven by sepsis, but I suspect she does have some transient adrenal insufficiency. She is currently on antibiotics. Blood cultures have been done. Urine culture has been done. We will give a stress dose of steroid and maintain her on steroid to see if that helps with her clinical picture. Of note, the patient 's cortisol level is 21.7, which is relatively low for the level of stress that she is going through. 2. Transient adrenal insufficiency. Will start using hydrocortisone. 3. Epigastric pain. Etiology is unclear. We will do a CT scan of the abdomen and pelvis to make sure there is no hidden infection that we have not been able to fern picker, since patient continues to be persistently hypotensive. 4. Chest x-ray is suspicious for bilateral lower lobe pneumonia. We will do a CT scan to get a better picture of the lungs. In general, from what I gathered from the son, the patient was brought here because the patient was found to have some bloody stool. We are going to do an FOBT to make sure there is no ongoing blood loss. The patient continues to be hypotensive. We will recheck hemoglobin and hematocrit to make sure there is no ongoing blood loss. We will do a CT scan of the chest, abdomen, and pelvis to rule out any hidden infection. We will continue with the current antibiotics. 5. Thrombocytopenia. I think this is due to the sepsis. 6. Protein calorie malnutrition. 7. Recurrent acute kidney injury. Will avoid any nephrotoxic drugs. cc: Abdelrahman Mo MD [facility]
[2016-08-06] MEDS ORDERED: ALBUMIN 25% IV ONE (17:00)
[2016-08-06] MEDS ORDERED: LASIX IV ONE (18:00)
[2016-08-06] MEDS ORDERED: EPINEPHRINE SYRINGE IV ONE (20:40)
[2016-08-06] MEDS ORDERED: NS IV ONE (20:40)
[2016-08-06] MEDS ORDERED: ATROPINE SYRINGE IV ONE (20:40)
[2016-08-06 20:43] VITALS: BP 96/75
[2016-08-06] MEDS ORDERED: SOLU-CORTEF IV SCH (21:00)
[2016-08-06] MEDS ORDERED: PITRESSIN ONE (21:11)
[2016-08-06] MEDS ORDERED: ATIVAN ONE (21:19)
[2016-08-06] MEDS ORDERED: ATIVAN IV ONE (22:26)
[2016-08-07] MEDS ORDERED: NS 1,000 ML ONE (01:01)
--- NOTE | 2016-08-07 19:29 | DISCHARGE SUMMARY ---
ADMISSION DATE: 08/06/2016 DISCHARGE DATE: 08/06/2016 SUMMARY DATE OF : 08/06/2016. TIME OF : 21:34. ADMISSION DIAGNOSES: 1. Bilateral pneumonia. 2. Septic shock. 3. Acute kidney injury. 4. History of atrial fibrillation. DIAGNOSES AT TIME OF : 1. Cardiac arrest with PEA. 2. Shock likely septic versus cardiogenic. 3. Acute hypoxemic respiratory failure secondary to pulmonary edema with atelectasis. 4. Acute diastolic heart failure. 5. Transient adrenal insufficiency. 6. Thrombocytopenia likely due to sepsis. 7. Recurrent acute kidney injuries. 8. Protein calorie malnutrition. PRESENTING COMPLAINT: Not feeling well. HISTORY OF PRESENTING COMPLAINT: Ms. Hu, an 81-year-old female was brought in by EMS. Patient was more lethargic, poor historian. The son was at the bedside. According to the EMS report, patient lives in a condition that is deplorable. She initially was thought to have bilateral pneumonia with septic shock. The patient was started on pressors and antibiotics. Blood cultures were done. Urine cultures were done. During the short stay in the hospital most of the care was given to Ms. Hu in the ER because there was no bed in the ICU. I personally saw her early on the morning of 08/06. I evaluated her. I looked at her images and her lab work. I did also believe she had persistent hypotension which I thought was related to sepsis as well as adrenal insufficiency. The patient was given multiple boluses of fluids and a CT scan of the abdomen and pelvic was done which showed fluid both in the abdomen and in the lungs which could have been acute diastolic heart failure with probably some overhydration, but the patient's blood pressure improved a little bit on the pressors and after the first dose of steroid. However at about 20:43 the patient was found with apneic respirations. Ventilation was started with Ambu bag. The patient became bradycardic and pulse was lost. CPR was started at 20:44 and a code was run for a while. Multiple rounds of epinephrine and vasopressin were given. Unfortunately Ms. Hu did not survive her injury which I think was fulminant septic shock as well as possible cardiogenic component. During the course of the code the daughter who was at the bedside ordered the code to be discontinued after over 30 minutes of running the code. This order according to the code sheet was given at about 21:15 and about 21:34 patient continued to be asystolic in 3 leads, pulseless, no signs of vitality, and was pronounced . cc: Abdelrahman Mo MD [facility]
[2016-08-08] MEDS ORDERED: VANCOMYCIN 1,200 MG in NS 250 ML IV SCH (18:00)
== END 2016-08-06 21:22 | disposition expired ==
LOC: ED 00:12 → EDIPHOLD 03:51 → SUATTDRO 03:51 → EDIPHOLD 08-07 00:38
PROVIDERS: ATTEND Internal Medicine